=== PATIENT | female | born 2000 | race Caucasian/White ===

== ENCOUNTER 2018-08-02 18:15 | Emergency (ER) | payer SELFPAY, OTHER ==
[2018-08-02] MEDS: IBUPROFEN 600 MG TAB PO (18:57)
== END 2018-08-02 21:35 | disposition home or self-care (01) ==
LOC: FTE 18:15
DX: S49.92XA Unspecified injury of left shoulder and upper arm, initial encounter (principal); X50.1XXA Overexertion from prolonged static or awkward postures, initial encounter; Y92.9 Unspecified place or not applicable
CPT/HCPCS: 73030; 99283-25